=== PATIENT | male | born 1975 | race Two or more races ===

== ENCOUNTER 2018-02-14 18:10 | Emergency (ER) | payer OTHER ==
[~2018-02-14] VITALS: Ht 167.6 cm; Wt 68.0 kg
[2018-02-14 19:00] VITALS: BP 120/82
--- NOTE | 2018-02-14 19:00 | NUR ---
ED Nurse Note: Pt walked in ER, c/o of laceration on the right index finger. per pt he was opening box and was cut by a knife at work around 1700. per pt pain 06/15. TR seen Pt at bedside.
[2018-02-14] MEDS ORDERED: Tetanus/Diptheria/Pertussis Vaccine 0.5ml Syr IM ONE (20:00)
--- NOTE | 2018-02-14 20:05 | Emergency Room Report ---
History of Present Illness General Chief Complaint: Laceration Source: Patient Present Illness HPI 42-year-old male patient presents the ER complaining of laceration on right index finger. Patient reports he sustained the injury while at work. 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 Patient reports injury occurred earlier today. Patient does not remember tetanus vaccination status. Denies loss of range of motion. Reports bleeding well controlled at this time with the use of a Band-Aid. Denies other acute symptoms. Denies loss of sensation. States not taking medication for relief of symptoms. Denies fever, chest pain, shortness of breath. Allergies: Coded Allergies: No Known Allergies (Unverified , 02/14/18) Nursing Documentation-[facility] Past Medical History: No Stated History Review of Systems All Other Systems: negative except mentioned in HPI Physical Exam Vital Signs Date Time Temp Pulse Resp B/P (MAP) Pulse Ox O2 Delivery O2 Flow Rate FiO2 02/14/18 18:13 98.1 78 16 123/79 95 Room Air Sp02 EP Interpretation: reviewed, normal General Appearance: well appearing, no apparent distress, alert, GCS 15, non- toxic Head: normocephalic, atraumatic ENT: hearing grossly normal, normal pharynx, no angioedema, normal voice, uvula midline, moist mucus membranes Respiratory: lungs clear, normal breath sounds, no rhonchi, no respiratory distress, no accessory muscle use, no wheezing, speaking full sentences Cardiovascular #1: regular rate, rhythm, no edema Cardiovascular #2: 2+ radial (R), 2+ radial (L) Musculoskeletal: back normal, digits/nails normal, gait/station normal, normal range of motion, non-tender, other - NVI, full range of motion with flexion extension at MCP PIP and DIP of right hand index finger, cap refill less than 2 seconds Neurologic: alert, oriented x3, responsive, motor strength/tone normal, sensory intact Psychiatric: mood/affect normal Skin: laceration - Small 1 cm laceration on right index finger, superficial, well approximated, no surrounding erythema or edema, no tendon exposure Procedures Laceration/Wound Repair Laceration/Wound Repair : Wound Location: upper extremity - right hand index finger Wound's Depth, Shape: superficial, linear Wound Length (cm): 1 Wound Explored: contaminated Irrigated w/ Saline (ccs): 10 Betadine Prep?: Yes Anesthesia: 1% Lidocaine Wound Debrided: extensive Wound Repaired With: Dermabond Sterile Dressing Applied?: No Splint Applied?: Yes Sling Applied?: Yes Patient Tolerated: Well Complications: None Medical Decision Making PA Attestation Dr. Rosas is my supervising Physician whom patient management has been discussed with. Diagnostic Impression: Primary Impression: Laceration ER Course Pt presents to ED c/o laceration on right hand next finger. DDX considered but are not limited to laceration, abrasion, contusion, cellulitis. VITAL SIGNS are WNL, patient is afebrile ED INTERVENTIONS: Wound was cleaned and irrigated using copious normal saline. Laceration repaired using Dermabond. See procedure note. Finger splinted to prevent opening of laceration due to location of injury. Patient reports understanding and agreement to treatment plan. Keep wound clean and dry. Followup with PCP in 2-3 days for wound check. ER precautions given. Workmen's Compensation paperwork completed. DISCHARGE: Rx provided for Bacitracin Rx provided for Tylenol At this time pt is stable for d/c to home. Patient resting comfortably, in no acute distress, nontoxic appearing, talking without difficulty. Will provide with patient care instructions and any necessary prescriptions. Patient to take medication as instructed. Care plan and follow-up instructions provided. Work note provided to patient. Patient questions asked and answered. Patient instructed to follow-up with primary care provider for wound check and suture removal. ER precautions given. Patient instructed to return to ER immediately for any new or worsening of symptoms. - Please note that this Emergency Department Report was dictated using [employer] seating press operator technology software, occasionally this can lead to erroneous entry secondary to interpretation by the dictation equipment. Last Vital Signs Date Time Temp Pulse Resp B/P (MAP) Pulse Ox O2 Delivery O2 Flow Rate FiO2 02/14/18 18:13 98.1 78 16 123/79 95 Room Air Status: improved Disposition: HOME, SELF-CARE Condition: Stable Scripts Acetaminophen* (TYLENOL EXTRA STRENGTH*) 500 Mg Tablet 500 MG ORAL Q8H PRN for Prn Headache/Temp > 101, #30 TAB 0 Refills Prov: Sundeep Morfin P.A. 02/14/18 Bacitracin/Polymyxin B Sulfate (BACITRACIN-POLYMYXIN OINTMENT) 28.35 Gm Oint...g. 1 APPLIC TP BID, #28 GM Prov: Sundeep Morfin 02/14/18 Patient Instructions: Nonsutured Laceration Care Additional Instructions: Patient instructed to follow-up with primary care provider in 2-3 days for wound check Followup with workman's compensation physician. Take medications as directed. Keep wound clean and dry. Patient questions asked and answered. ER precautions given, patient instructed to return to ER immediately for any new or worsening of symptoms. Sundeep Morfin Feb 14, 2018 20:05
[2018-02-14] MEDS ORDERED: TYLENOL EXTRA500 MG ORAL (20:24)
[2018-02-14] MEDS ORDERED: BACITRACIN-P28.35 GM TP (20:24)
[2018-02-14 20:35] VITALS: BP 126/6
--- NOTE | 2018-02-14 20:35 | NUR ---
ED Nurse Note: Pt cleared DC by TR. Pt is AO x 4times, VSS, on room air no distress. DC and Meds instructions given to Pt, Pt understood well. Belongings given to Pt. ID bend removed. Pt walked out unit with steady gait with daughter.
== END 2018-02-14 20:35 | disposition home or self-care (01) ==
LOC: EMR 18:52
DX: S61.210A Laceration without foreign body of right index finger without damage to nail, initial encounter (principal); W26.0XXA Contact with knife, initial encounter; Y92.69 Other specified industrial and construction area as the place of occurrence of the external cause
CPT/HCPCS: 29130; 99283